=== PATIENT | female | born 1980 | race American Indian/Alaskan Native ===

== ENCOUNTER 2022-07-24 12:24 | Emergency (ER) | payer SELFPAY ==
[2022-07-24] MEDS ORDERED: KETOROLAC 30 MG/1 ML INJ IM ONE (17:47)
[2022-07-24] MEDS ORDERED: guaiFENesin/CODEINE 100-10MG ORAL LIQD 5 ML PO ONE (17:48)
[2022-07-24] MEDS ORDERED: dexAMETHasone 20 MG/5 ML VIAL IM ONE (17:48)
[2022-07-24] MEDS ORDERED: CLINDAMYCIN 150 MG/ML VIAL 6 ML IM ONE (18:03)
--- NOTE | 2022-07-24 18:09 | Emergency Department Report ---
ED ENT HPI - General Chief complaint: Sore Throat Stated complaint: SORE THROAT, LEG PAIN Time Seen by Provider: 07/24/22 16:41 Source: patient Mode of arrival: Ambulatory Limitations: No Limitations - History of Present Illness Initial comments: 41-year-old female with history of hypertension, CHF, asthma, presents to the emergency department with sore throat. Patient describes sore throat x1 week mostly on the right and has progressed to the left side. Symptoms associated with pain in her right ear, chills, fever, coughing, wheezing, shortness of breath, reports no improvement with [id number] therapy. Difficulty swallowing, tolerating oral intake. She denies headache, no nausea vomiting, no chest pain, no swelling of extremities, no vision changes, no recent travel, no known sick contacts. - Related Data Previous Rx's Medication Instructions Recorded Last Taken Type Albuterol Sulfate 1.25 mg IH QID PRN #60 vial 07/24/22 Unknown Rx Albuterol Sulfate [Proair 90 mcg IH QID PRN #1 07/24/22 Unknown Rx Digihaler] Clindamycin [Clindamycin CAP] 300 mg PO Q8H 10 Days cap 07/24/22 Unknown Rx Ibuprofen [Motrin 800 MG tab] 800 mg PO Q8HR PRN #20 tablet 07/24/22 Unknown Rx guaiFENesin/CODEINE [Robitussin AC] 5 ml PO QID PRN #60 oral.liqd 07/24/22 Unknown Rx Allergies Allergy/AdvReac Type Severity Reaction Status Date / Time diphenhydramine Allergy Swelling Verified 07/24/22 13:06 [From Benadryl] Penicillins Allergy Swelling Verified 07/24/22 13:05 ED Dental HPI - General Chief complaint: Sore Throat Stated complaint: SORE THROAT, LEG PAIN Time Seen by Provider: 07/24/22 16:41 Source: patient Mode of arrival: Ambulatory Limitations: No Limitations - Related Data Previous Rx's Medication Instructions Recorded Last Taken Type Albuterol Sulfate 1.25 mg IH QID PRN #60 vial 07/24/22 Unknown Rx Albuterol Sulfate [Proair 90 mcg IH QID PRN #1 07/24/22 Unknown Rx Digihaler] Clindamycin [Clindamycin CAP] 300 mg PO Q8H 10 Days cap 07/24/22 Unknown Rx Ibuprofen [Motrin 800 MG tab] 800 mg PO Q8HR PRN #20 tablet 07/24/22 Unknown Rx guaiFENesin/CODEINE [Robitussin AC] 5 ml PO QID PRN #60 oral.liqd 07/24/22 Unknown Rx Allergies Allergy/AdvReac Type Severity Reaction Status Date / Time diphenhydramine Allergy Swelling Verified 07/24/22 13:06 [From Benadryl] Penicillins Allergy Swelling Verified 07/24/22 13:05 ED Review of Systems ROS: Stated complaint: SORE THROAT, LEG PAIN Other details as noted in HPI Constitutional: chills, fever ENT: ear pain, throat pain Respiratory: cough, shortness of breath, wheezing Cardiovascular: denies: chest pain, palpitations Gastrointestinal: denies: abdominal pain, nausea, vomiting Neurological: denies: headache, weakness, numbness Hematological/Lymphatic: swollen glands. denies: easy bleeding ED Past Medical Hx - Past Medical History Hx Congestive Heart Failure: Yes Hx Asthma: Yes Additional medical history: ENLARGED HEART/ KIDNEY PRBLEMS - Surgical History Additional Surgical History: HERNIA - Social History Smoking Status: Never Smoker Substance Use Type: None - Medications Home Medications: Home Medications Medication Instructions Recorded Confirmed Last Taken Type Albuterol Sulfate 1.25 mg IH QID PRN #60 vial 07/24/22 Unknown Rx Albuterol Sulfate [Proair 90 mcg IH QID PRN #1 07/24/22 Unknown Rx Digihaler] Clindamycin [Clindamycin CAP] 300 mg PO Q8H 10 Days cap 07/24/22 Unknown Rx Ibuprofen [Motrin 800 MG tab] 800 mg PO Q8HR PRN #20 tablet 07/24/22 Unknown Rx guaiFENesin/CODEINE [Robitussin AC] 5 ml PO QID PRN #60 oral.liqd 07/24/22 Unknown Rx ED Physical Exam - General Limitations: No Limitations General appearance: alert, in no apparent distress (Uncomfortable appearing female in no acute distress) - Head Head exam: Present: atraumatic - ENT ENT exam: Present: other (Bilateral tonsillar enlargement with exudative erosion, no drooling, no trismus, there is cervical adenopathy. She is tolerating oral secretions.) - Neck Neck exam: Present: tenderness, lymphadenopathy - Respiratory Respiratory exam: Present: normal lung sounds bilaterally. Absent: respiratory distress, wheezes, chest wall tenderness - Cardiovascular Cardiovascular Exam: Present: regular rate, normal rhythm - GI/Abdominal GI/Abdominal exam: Present: soft. Absent: distended, tenderness - Extremities Exam Extremities exam: Present: normal inspection, full ROM - Back Exam Back exam: Present: normal inspection, full ROM - Neurological Exam Neurological exam: Present: alert, oriented X3, CN II-XII intact, normal gait - Psychiatric Psychiatric exam: Present: normal affect, normal mood - Skin Skin exam: Present: warm, dry, intact, normal color ED Course Vital Signs 07/24/22 07/24/22 13:06 16:55 Temperature 98.9 F 98.3 F Pulse Rate 75 70 Respiratory 18 20 Rate Blood Pressure 121/84 134/83 Blood Pressure 134/83 [Left] O2 Sat by Pulse 99 100 Oximetry ED Medical Decision Making - Medical Decision Making 41-year-old female with history of hypertension, CHF, asthma, presents to the emergency department with sore throat. Patient describes sore throat x1 week mostly on the right and has progressed to the left side. Symptoms associated with pain in her right ear, chills, fever, coughing, wheezing, shortness of breath, reports no improvement with [id number] therapy. Difficulty swallowing, tolerating oral intake. She denies headache, no nausea vomiting, no chest pain, no swelling of extremities, no vision changes, no recent travel, no known sick contacts. Based on examination, strep culture canceled, treated with IM clindamycin, patient is allergic to penicillin. Steroid injection as well as pain management. Patient reports moderate improvement of her symptoms, she is able to tolerate oral secretions or swallow pills. Discharge home with supportive therapy including antibiotics, steroids, albuterol for her asthma, and strict instructions to follow-up. Patient remained stable nontoxic-appearing, afebrile, ambulating steadily without assistance. Gone over ED findings with patient as well as plan for follow-up. Also discussed return precautions with patient, all questions and concerns addressed. Patient is stable to be discharged follow-up outpatient. Audio voice dictation device used, hence the chart might contain some dictation errors, mispronunciations, wrong spelling and wrong verbiage. Patient remained stable nontoxic-appearing, afebrile, ambulating steadily wit hout assistance. Gone over ED findings with patient as well as plan for follow- up. Also discussed return precautions with patient, all questions and concerns addressed. Patient is stable to be discharged follow-up outpatient. Audio voice dictation device used, hence the chart might contain some dictation errors, mispronunciations, wrong spelling and wrong verbiage. Critical care attestation.: If time is entered above; I have spent that time in minutes in the direct care of this critically ill patient, excluding procedure time. ED Disposition Clinical Impression: Exudative tonsillitis, Tonsillopharyngitis, Asthma Disposition: HOME / SELF CARE / HOMELESS Is pt being admited?: No Does the pt Need Aspirin: No Condition: Stable Instructions: Tonsillitis, Asthma (ED), Asthma, Adult Prescriptions: Albuterol Sulfate 1.25 mg IH QID PRN #60 vial PRN Reason: Bronchospasm Clindamycin [Clindamycin CAP] 300 mg PO Q8H 10 Days cap Ibuprofen [Motrin 800 MG tab] 800 mg PO Q8HR PRN #20 tablet PRN Reason: Pain , Severe (7-10) Albuterol Sulfate [Proair Digihaler] 90 mcg IH QID PRN #1 PRN Reason: Wheezing guaiFENesin/CODEINE [Robitussin AC] 5 ml PO QID PRN #60 oral.liqd PRN Reason: Pain , Severe (7-10) Referrals: SUZY BEY MD [Staff Physician] - 3-5 Days Forms: Work/School Release Form(ED)
[2022-07-24] MEDS ORDERED: CLINDAMYCIN 300 MG CAP PO ONE (18:19)
[2022-07-24] MEDS ORDERED: dexAMETHasone 4 MG/ML VIAL PO ONE (18:19)
[2022-07-24] MEDS ORDERED: KETOROLAC 10 MG TAB PO ONE (18:20)
[2022-07-24 18:35] VITALS: BP 134/78
== END 2022-07-24 19:03 | disposition home or self-care (01) ==
LOC: ED 12:24
DX: J03.90 Acute tonsillitis, unspecified (principal); B00.2 Herpesviral gingivostomatitis and pharyngotonsillitis; J45.909 Unspecified asthma, uncomplicated; Z88.0 Allergy status to penicillin; Z91.09 Other allergy status, other than to drugs and biological substances
CPT/HCPCS: 99282; J1100; J1885